=== PATIENT | male | born 1940 | race Caucasian/White ===

== ENCOUNTER 2017-09-01 18:02 | Emergency (ER) | payer MEDICARE, OTHER ==
[~2017-09-01] VITALS: Ht 185.4 cm; Wt 95.3 kg
--- OUTSIDE RECORDS SUMMARY | 2017-09-01 18:04 | XMS REPORT | Clinical Summary ---
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 Disp. Refills Start End Date Status Date montelukast (SINGULAIR) 02/09/20 Active 10 mg tablet 16 mupirocin (BACTROBAN) 2 % 04/08/20 Active ointment 16 VESICARE 10 mg tablet 02/27/20 Active 16 MYRBETRIQ 50 mg tablet 04/10/20 Active extended release 24 hr 16 SYMBICORT 160-4.5 07/08/19 Active mcg/actuation inhaler 17 aspirin (ECOTRIN) 81 MG Take 81 mg by mouth Active enteric coated tablet daily. meloxicam (MOBIC) 7.5 mg Take 1 tablet (7.5 mg 30 tablet 11 05/15/20 05/15/20 Active tablet total) by mouth daily. 17 18 amLODIPine (NORVASC) 5 mg Take 1 tablet (5 mg 90 tablet 3 08/22/19 11/20/19 tabletIndications: total) by mouth daily for 17 17 Cardiac risk counseling 90 days. meloxicam (MOBIC) 15 mg Take 1 tablet (15 mg 90 tablet 0 10/10/19 Discontin tabletIndications: Left total) by mouth daily for 17 17 ued foot pain 90 days. meloxicam (MOBIC) 15 mg Take 1 tablet (15 mg 90 tablet 0 12/14/19 tabletIndications: Left total) by mouth daily for 17 17 foot pain 90 days. 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 Chronic pain of left knee 05/21/2016 Chronic pain of left thumb 05/21/2016 Hallux rigidus of left foot 05/21/2016 Overview: Great toe Encounters Date Type Specialty Care Team Description 05/15/2017 Refill Orthopedic Surgery Gladys Farias MA 12/13/2016 Refill Orthopedic Surgery Jamie Lamb MD Left foot pain 10/09/2016 Orders Only Orthopedic Surgery Jamie Lamb MD Left foot pain (Primary Dx) 09/04/2016 Office Visit Orthopedic Surgery Jamie Lamb MD Left foot pain (Primary Dx); Left hand pain; Neuropathy of foot, left; Hallux rigidus of left foot; Chronic pain of left thumb after 08/31/2016 Family History Medical History Relation Name Comments Other Father Cancer Mother Relation Name Status Comments Father Mother Social History Tobacco Use Types Packs/Day Years Used Date Never Smoker Alcohol Use Drinks/Week oz/Week Comments No Sex Assigned at Date Recorded Not on file Last Filed Vital Signs Not on file Plan of Treatment Date Type Specialty Care Team Description 12/09/2017 [place] [address] [place] [id number] Health Maintenance Due Date Last Done Comments ZOSTER VACCINE 2000 PNEUMOCOCCAL 2005 POLYSACCHARIDE VACCINE AGE 65 AND OVER PNEUMOCOCCAL-13 2005 INFLUENZA VACCINE 12/31/2016 Procedures Procedure Name Priority Date/Time Associated Diagnosis Comments [place] ARTHROCENTESIS Routine 09/04/2016 Chronic pain of left Results for this ASPIR&/INJ SMALL JT/BURSA 1:50 PM CDT thumb procedure are in the W/O US results section. after 08/31/2016 Results * Small Joint Arthrocentesis (09/04/2016 1:50 PM) Narrative Jamie Lamb MD 09/04/20161:50 PM Small Joint Arthrocentesis Consent given by: patient Site marked: site marked Timeout: Immediately prior to procedure a time out was called to verify the correct patient, procedure, equipment, client support representative and site/side marked as required Supporting Documentation Indications: pain Procedure Details Preparation: Patient was prepped and draped in the usual sterile fashion Location: thumb - L thumb MCP Left side: Needle size: 22 G Approach: volar Left thumb medications administered: 6 mg betamethasone acet,sod phos 6 mg/mL; 1 mL lidocaine 10 mg/mL (1 %) Patient tolerance: patient tolerated the procedure well with no immediate complications * XR Foot 3+ Vw Left (09/04/2016 12:25 PM) Specimen Performing Laboratory [facility] [address] [place] [address] Narrative Left great toe hallux rigidus. No acute findings. No fractures. No dislocations. * XR Hand 3+ Vw Left (09/04/2016 12:24 PM) Specimen Performing Laboratory [facility] [address] [place] [address] Narrative Degenerative changes seen in the carpal joints as well as the radioulnar joint. No acute findings. No fractures. after 08/31/2016 Insurance Payer Benefit Subscriber ID Type Phone Address Plan / Group MEDICARE MEDICARE xxxxxxxxxx Medicare [place] PART A AND B BANKERS LIFE AND CASUALTY BANKERS xxxxxxxxx [employer] Work: [id number] [place] [address] Home:
[2017-09-01] MEDS ORDERED: ALBUTEROL0.63 MG/3 (18:30)
[2017-09-01] MEDS ORDERED: ASPIRIN325 MG PO (18:30)
[2017-09-01] MEDS ORDERED: BACITRACIN 50,000 UNIT VIAL IM ONE (18:30)
[2017-09-01] MEDS ORDERED: VESICARE5 MG PO (18:31)
[2017-09-01] MEDS ORDERED: ALLEGRA-D 12 H1 EACH (18:31)
[2017-09-01 20:25] VITALS: BP 140/72
== END 2017-09-01 20:27 | disposition short-term general hospital (02) ==
LOC: FSED 18:02
DX: R55 Syncope and collapse (principal); S06.5X9A Traumatic subdural hemorrhage with loss of consciousness of unspecified duration, initial encounter; W18.39XA Other fall on same level, initial encounter; Y99.0 Civilian activity done for income or pay; I10 Essential (primary) hypertension; J45.909 Unspecified asthma, uncomplicated; Z85.51 Personal history of malignant neoplasm of bladder
CPT/HCPCS: 70450; 72126; 93005; 99284

== ENCOUNTER 2020-10-08 19:03 | Emergency (ER) | payer MEDICARE, OTHER ==
[~2020-10-08] VITALS: Ht 185.4 cm; Wt 93.4 kg
[~2020-10-08 19:03] MED LIST: ALBUTEROL0.63 MG/3; ALLEGRA-D 12 H1 EACH; ASPIRIN325 MG PO; VESICARE5 MG PO
[2020-10-08 21:25] VITALS: BP 140/82
== END 2020-10-08 21:25 | disposition home or self-care (01) ==
LOC: FSED 19:43
DX: S00.83XA Contusion of other part of head, initial encounter (principal); S13.4XXA Sprain of ligaments of cervical spine, initial encounter; S40.011A Contusion of right shoulder, initial encounter; V43.52XA Car driver injured in collision with other type car in traffic accident, initial encounter; Y92.488 Other paved roadways as the place of occurrence of the external cause; I10 Essential (primary) hypertension; Z85.46 Personal history of malignant neoplasm of prostate; Z85.51 Personal history of malignant neoplasm of bladder
CPT/HCPCS: 70450; 70486; 71045; 72125; 99283

== ENCOUNTER → 2023-09-29 | Outpatient (REF) | payer MEDICARE | LOC: RAD 15:45 | PROVIDERS: ATTEND Internal Medicine | DX: M25.552 Pain in left hip (principal) ==